=== PATIENT | female | born 1975 | race African-American/Black ===

== ENCOUNTER 2016-05-08 09:13 | Day surgery (SDC) | payer OTHER ==
[~2016-05-08] VITALS: Ht 149.9 cm; Wt 84.8 kg
[~2016-05-08 09:13] MED LIST: ADVAIR HFA120 INHALA IH; ADVAIR IH; AMBIEN CR6.25 MG PO; AMBIEN5 MG PO; AMLODIPINE BESY10 MG; APRESOLINE25 MG PO; APRESOLINE50 MG PO; ASPIR 8181 M1 PO; ASPIR-LOW81 MG PO; ATENOLOL50 MG PO; ATIVAN0.5 MG PO; Advair HFA 115/21 IH; Aspirin E.C. PO; BD INSULIN SYR 1 ML; CALCITRIOL0.25 MCG; CALCITRIOL0.25 MCG PO; CALCIUM ACETAT667 M2 PO; CALCIUM ACETAT667 MG PO; CARDURA2 MG; CLEOCIN300 MG PO; COZAAR50 MG PO; DIOVAN160 MG PO; DOCUSATE SODIU100 MG PO; FLEXERIL10 MG PO; FLEXERIL5 MG PO; FOLIC ACID1 MG PO; FORTAMET1000 M1 PO; FUROSEMIDE40 MG PO; HYDROCHLOROTHIA25 MG; HYDROCHLOROTHIA25 MG PO; IMDUR30 MG PO; IRON325 M1 PO; ISOSORBIDE MONO30 MG PO; KLOR-CON M1010 MEQ PO; LANOXIN,DIGIT0.25 MG PO; LANTUS 10100 UNITS/; LANTUS 10100 UNITS/ SC; LANTUS 3 M100 UNITS1 SC; LASIX40 MG PO; LOSARTAN POTASS50 MG PO; Lasix PO; MELOXICAM7.5 MG PO; METFORMIN HCL500 M2; METOPROLOL SUCC50 MG PO; METOPROLOL TARTRATE PO; MOBIC7.5 MG PO; MOTRIN600 MG PO; NEPHRO-VITE,1 TABLET PO; NORCO 5/3251 TABLET PO; NOVOLOG 10100 UNITS/; NOVOLOG MI100 UNIT/2 SQ; NOVOLOG MI100 UNIT/4; NOVOLOG PE100 UNITS/ SC; NOVOLOG100 UNIT/1 SC; OMEPRAZOLE40 M1 PO; ONE TOUCH ULTRA TEST; OXYCODONE HCL5 MG; OXYCODONE-ACET1 EACH; POLYETHYLENE GL17 GM PO; PRAVACHOL80 MG PO; PRILOSEC40 MG PO; PRINZIDE 20-251 EACH; PROVENTIL HFA6.7 GM IH; PROVENTIL,2.5 MG/3 M IH; Proventil,Ventolin H IH; ROCALTROL0.25 MCG PO; TIAZAC360 MG PO; TOPROL XL50 MG PO; TYLENOL EXTRA500 MG PO; TYLENOL REGULA325 MG PO; ULTRAM50 MG PO; VENTOLIN HFA18 GM IH; VICODIN 5-3001 EACH PO; VITAMIN D-32000 UNI2 PO; Vitamin B-12 PO; Vitamin D, Drisdol PO; ZESTORETIC 20-1 EAC1 PO; ZESTORETIC,P1 TABLE3; ZESTRIL,PRINIVI20 MG PO; ZESTRIL20 MG PO; [UNRECOGNIZED DRUG - OTHER] PO
[2016-05-08 09:44] VITALS: BP 183/82
[2016-05-08 10:28] LABS: HEMATOCRIT 32.1 % (36.0-46.0); MCH 31.9 PG (29.0-34.0); MCHC 32.4 G/DL (30.0-36.0); MCV 98.5 FL (83-99); MEAN PLAT.VOLUME 9.6 uM^3 (9.5-12.4); PLATELET COUNT 242 K/uL (156-360); RBC DIS.WIDTH-CV 16.9 % (11.8-14.6); RBC DIS.WIDTH-SD 60.9 % (39-53); RED BLOOD COUNT 3.26 M/uL (3.80-5.20); WHITE BLOOD COUNT 6.2 K/uL (4.1-10.2)
[2016-05-08 11:08] LABS: METH RESISTANT S AUREUS PCR NEGATIVE (NEGATIVE)
[2016-05-08 11:09] LABS: PROBE CHECK PASS; SPECIMEN PROCESSING CONTROL PASS
[2016-05-08 11:23] LABS: ANION GAP 12 MEQ/L (2-14); CHLORIDE 96 MEQ/L (99-109); GFR ESTIMATE (CALCULATED) 11 mL/min/; GLUCOSE 97 mg/dL (70-99); POTASSIUM 4.4 MEQ/L (3.7-5.4); SAMPLE HEMOLYSIS CHECK 0; SAMPLE ICTERIC CHECK 0; SAMPLE LIPEMIA CHECK 0; SODIUM 137 MEQ/L (136-147); UREA NITROGEN (BUN) 59 mg/dL (9-23)
[2016-05-08] MEDS ORDERED: NORCO 5/3251 TABLET PO (15:09)
[2016-05-08 17:13] VITALS: BP 132/65
[2016-05-08 18:05] VITALS: BP 133/68
== END 2016-05-08 18:20 | disposition home or self-care (01) ==
LOC: SDC 09:13
PROVIDERS: Surgery
PROC: 03170ZD Bypass Right Brachial Artery to Upper Arm Vein, Open Approach (ICD-10-PCS; principal; 2016-05-08)
DX: I12.0 Hypertensive chronic kidney disease with stage 5 chronic kidney disease or end stage renal disease (principal); E11.22 Type 2 diabetes mellitus with diabetic chronic kidney disease; N18.6 End stage renal disease; K21.9 Gastro-esophageal reflux disease without esophagitis; Z99.2 Dependence on renal dialysis; J45.909 Unspecified asthma, uncomplicated; Z79.51 Long term (current) use of inhaled steroids
CPT/HCPCS: 80048; 82948; 85027; 87641; J0690; J1644; J2250; J2405; J2720; J2765; J3010

== ENCOUNTER 2016-06-05 16:56 | Emergency (ER) | payer OTHER | END 2016-06-05 17:38 | LOC: EME → EDBD 16:56 → EME 17:38 | PROC: 5A12012 Performance of Cardiac Output, Single, Manual (ICD-10-PCS; principal; 2016-06-05) | DX: I46.9 Cardiac arrest, cause unspecified (principal); E11.22 Type 2 diabetes mellitus with diabetic chronic kidney disease; I12.0 Hypertensive chronic kidney disease with stage 5 chronic kidney disease or end stage renal disease; N18.6 End stage renal disease; Z99.2 Dependence on renal dialysis; Z79.4 Long term (current) use of insulin; J45.909 Unspecified asthma, uncomplicated | CPT/HCPCS: 92950; 99281; 99285; J0171 ==